=== PATIENT | female | born 1990 | race Caucasian/White ===

== ENCOUNTER 2021-01-12 09:46 | Emergency (ER) | payer OTHER, SELFPAY ==
[2021-01-12] MEDS ORDERED: methylPREDNISolone Sod Succ/PF 125 MG/2 ML VIAL ONE (10:06)
[2021-01-12] MEDS ORDERED: Ondansetron ODT 4 MG TAB ONE (10:56)
== END 2021-01-12 11:31 | disposition home or self-care (01) ==
LOC: NAV ERS 09:46
DX: L23.7 Allergic contact dermatitis due to plants, except food (principal)
CPT/HCPCS: 96372; 99282; J2930; Q0162